=== PATIENT | female | born 1990 | race Caucasian/White ===

== ENCOUNTER 2018-08-04 17:35 | Emergency (ER) | payer OTHER ==
[2018-08-04] MEDS ORDERED: ONDANSETRON *ODT* 4 MG TABLET SL ONE (17:45)
--- NOTE | 2018-08-04 17:47 | PDOC ---
Rapid Medical Evaluation Chief Complaint: Respiratory Time Seen by Provider: 08/04/18 17:43 Medical Evaluation: 08/04/18 17:43 27 year old with epigastric pain x 2 days with vomiting and diarrhea and cough x 3 weeks. denies fever/ chills PE: patient alert ox3. breath sounds clear A: epigastric pain P: zofran po ua urine patient to the ER for further management of care 08/04/18 17:46 Discharge Disposition - Diagnosis Epigastric abdominal pain - Referrals - Patient Instructions - Post Discharge Activity
[2018-08-04 17:48] VITALS: BP 133/79; PULSE 61; TEMP 98.2; BMI 24.7
[2018-08-04] MEDS ORDERED: ONDANSETRON *ODT* 4 MG TABLET ONE ×2 (18:25→18:26)
[2018-08-04 18:43] LABS: HCG,QUALITATIVE URINE Negative
[2018-08-04] MEDS ORDERED: FAMOTIDINE 20 MG/50 ML IVPB 20 MG/50 ML MG IVPB ONE ×2 (18:45→18:56)
[2018-08-04 18:46] LABS: URINE APPEARANCE CLEAR; URINE BILIRUBIN NEGATIVE (<2.0 mg/dL); URINE COLOR STRAW; URINE GLUCOSE (UA) NEGATIVE (NEGATIVE); URINE KETONE NEGATIVE (NEGATIVE); URINE LEUK ESTERASE NEGATIVE (NEGATIVE); URINE NITRITE NEGATIVE (NEGATIVE); URINE PROTEIN NEGATIVE (NEGATIVE); URINE UROBILINOGEN NEGATIVE mg/dL (0.2-1.0)
--- NOTE | 2018-08-04 18:59 | PDOC ---
History of Present Illness - General History Source: Patient Exam Limitations: Clinical Condition - History of Present Illness Initial Comments: 08/04/18 18:53 Patient with no significant past medication present with complaint of 3 weeks history of intermittent nonproductive cough and nasal congestion. Patient also reported 2 day history of epigastric pain with nausea and vomiting. Denies fever or chills. she also reports loose stool for same. Patient report vomiting 5 times today. Denies blood in vomit. Denies blood in stool. Patient denies recent travel. Timing/Duration: other (2 days) <Rafita Burger - Last Filed: 08/04/18 19:51> <Jerman Marrero - Last Filed: 08/04/18 21:08> - General Chief Complaint: Nausea/Vomiting Stated Complaint: PAIN Time Seen by Provider: 08/04/18 17:43 Past History - Past Medical History COPD: No Other medical history: LMP 07/28/18 - Suicide/Smoking/Psychosocial Hx Smoking History: Never smoked Hx Alcohol Use: No Drug/Substance Use Hx: No <Rafita Burger - Last Filed: 08/04/18 19:51> <Jerman Marrero - Last Filed: 08/04/18 21:08> - Past Medical History Allergies/Adverse Reactions: Allergies Allergy/AdvReac Type Severity Reaction Status Date / Time Fish Containing Products Allergy Verified 08/04/18 18:01 SEAFOOD Allergy Uncoded 08/04/18 17:45 Home Medications: Ambulatory Orders Benzonatate [Tessalon Pearls -] 100 mg PO TID PRN #21 capsule 08/04/18 Cefdinir 300 mg PO BID 5 Days #10 capsule 08/04/18 Famotidine [Pepcid] 20 mg PO BID 5 Days #10 tablet 08/04/18 Methylprednisolone [Medrol Dose Jude] 4 mg PO ASDIR #21 tablet 08/04/18 Ondansetron [Zofran Odt -] 4 mg SL TID PRN #12 od.tablet 08/04/18 Review of Systems - Review of Systems Able to Perform ROS?: Yes Is the patient limited Kazakh proficient: No Constitutional: No: Chills, Fever, Weakness HEENTM: Yes: See HPI, Nose Congestion. No: Eye Pain, Blurred Vision, Tearing, Recent change in vision, Double Vision, Cataracts, Ear Pain, Ocular Prothesis, Ear Discharge, Nose Pain, Tinnitus, Nose Bleeding, Hearing Loss, Throat Pain, Throat Swelling, Mouth Pain, Dental Problems, Difficulty Swallowing, Mouth Swelling, Other Respiratory: Yes: Symptoms reported, See HPI, Cough. No: Orthopnea, Shortness of Breath, SOB with Exertion, SOB at Rest, Stridor, Wheezing, Productive cough, Hemoptysis Cardiac (ROS): No: Symptoms Reported, See HPI, Chest Pain, Edema, Irregular Heart Rate, Lightheadedness, Palpitations, Syncope, Chest Tightness, Other ABD/GI: Yes: See HPI, Diarrhea, Nausea, Vomiting, Abdominal cramping (epigastric ). No: Abdominal Distended, Abd. Pain w/ defecation, Blood Streaked Bowels, Constipated, Difficulty Swallowing, Poor Appetite, Poor Fluid Intake, Rectal Bleeding, Indigestion, Tarry Stools : No: Burning, Dysuria, Frequency, Flank Pain, Hematuria, Incontinence, Pain, Urgency Musculoskeletal: No: Back Pain All Other Systems: Reviewed and Negative <Rafita Burger - Last Filed: 08/04/18 19:51> *Physical Exam - Vital Signs Last Vital Signs Temp Pulse Resp BP Pulse Ox 98.2 F 61 16 133/79 99 08/04/18 17:46 08/04/18 17:46 08/04/18 17:46 08/04/18 17:46 08/04/18 17:46 - Physical Exam Comments: 08/04/18 18:56 GENERAL: Well developed, well nourished. Awake and alert. No acute distress. HEENT: Normocephalic, atraumatic. PERRLA, EOMI. No conjunctival pallor. Sclera are non- icteric. Moist mucous membranes. Oropharynx is clear. NECK: Supple. Full ROM. No JVD. Carotid pulses 2+ and symmetric, without bruits. No thyromegaly. No lymphadenopathy. CARDIOVASCULAR: Regular rate and rhythm. No murmurs, rubs, or gallops. Distal pulses are 2+ and symmetric. PULMONARY: No evidence of respiratory distress. Lungs clear to auscultation bilaterally. No wheezing, rales or rhonchi. ABDOMINAL:moderate epigastric and LLQ tenderness Soft. Non-distended. No rebound or guarding. No organomegaly. Normoactive bowel sounds. SKIN: Warm and dry. Normal capillary refill. No rashes. No jaundice. NEUROLOGICAL: Alert, awake, appropriate. Gait is normal without ataxia. PSYCHIATRIC: Cooperative. Good eye contact. Appropriate mood and affect. General Appearance: Yes: Nourished, Appropriately Dressed. No: Apparent Distress <Rafita Burger - Last Filed: 08/04/18 19:51> - Vital Signs Last Vital Signs Temp Pulse Resp BP Pulse Ox 98.2 F 61 16 133/79 99 08/04/18 17:46 08/04/18 17:46 08/04/18 17:46 08/04/18 17:46 08/04/18 17:46 <Jerman Marrero - Last Filed: 08/04/18 21:08> ED Treatment Course - LABORATORY CBC & Chemistry Diagram: 08/04/18 18:45 08/04/18 18:41 - ADDITIONAL ORDERS Additional order review: Laboratory Results 08/04/18 06:30 Urine Color Straw Urine Appearance Clear Urine pH 6.0 Ur Specific [place] 1.015 Urine Protein Negative Urine Glucose (UA) Negative Urine Ketones Negative Urine Blood Negative Urine Nitrite Negative Urine Bilirubin Negative Urine Urobilinogen Negative Ur Leukocyte Esterase Negative Urine HCG, Qual Negative - RADIOLOGY Radiology Studies Ordered: Category Date Time Status ABDOMEN & PELVIS CT WITH CONTR [CT] Stat CT Scan 08/04/18 18:50 Ordered - Medications Given in the ED: ED Medications Discontinued Medications Generic Name Dose Route Start Last Admin Trade Name Freq PRN Reason Stop Dose Admin Ondansetron HCl 4 mg 08/04/18 17:45 08/04/18 18:26 Zofran Odt - SL 08/04/18 17:46 4 mg ONCE ONE Administration <JennyferRafita - Last Filed: 08/04/18 19:51> - LABORATORY CBC & Chemistry Diagram: 08/04/18 18:45 08/04/18 18:41 - ADDITIONAL ORDERS Additional order review: Laboratory Results 08/04/18 08/04/18 18:41 06:30 Sodium 138 Potassium 4.7 Chloride 102 Carbon Dioxide 29 Anion Gap 7 L BUN 18 Creatinine 0.8 Creat Clearance w eGFR > 60 Random Glucose 81 Calcium 9.8 Total Bilirubin 0.5 Direct Bilirubin 0.2 AST 21 ALT 24 Alkaline Phosphatase 58 Total Protein 8.5 H Albumin 4.1 Total Amylase 55 Lipase 231 Urine Color Straw Urine Appearance Clear Urine pH 6.0 Ur Specific [place] 1.015 Urine Protein Negative Urine Glucose (UA) Negative Urine Ketones Negative Urine Blood Negative Urine Nitrite Negative Urine Bilirubin Negative Urine Urobilinogen Negative Ur Leukocyte Esterase Negative Urine HCG, Qual Negative 08/04/18 18:45 RBC 5.00 MCV 76.6 L MCHC 33.9 RDW 16.5 H MPV 10.0 Neutrophils % 61.5 Lymphocytes % 20.7 Monocytes % 5.7 Eosinophils % 11.5 H Basophils % 0.6 - Medications Given in the ED: ED Medications Discontinued Medications Generic Name Dose Route Start Last Admin Trade Name Freq PRN Reason Stop Dose Admin Famotidine/Sodium Chloride 20 mg in 50 mls @ 100 mls/hr 08/04/18 18:45 19:03 Pepcid 20 Mg Premixed Ivpb - IVPB 08/04/18 19:14 100 mls/hr ONCE ONE Administration Ondansetron HCl 4 mg 08/04/18 17:45 08/04/18 18:26 Zofran Odt - SL 08/04/18 17:46 4 mg ONCE ONE Administration <Jerman Marrero - Last Filed: 08/04/18 21:08> Medical Decision Making - Medical Decision Making 08/04/18 18:57 Patient with no significant past medication present with complaint of 2 weeks history of intermittent nonproductive cough and nasal congestion. Patient also with complaint of 2 days history of epigastric pain with nausea and vomiting. Exam significant for moderate tenderness so epigastric area with mild tenderness to left lower quadrant. symptoms gastroenteritis vs cholecystis vs colitis CBC, CMP and hepatic panel of labs ordered. Urine hCG negative. CAT scan of abdominal with IV contrast ordered. Treat based on imaging and lab results 08/04/18 18:59 08/04/18 19:51 cbc and chemistry with no abnormality. abd CT still pending. likely gastroenteritis with URI and will be treated outpatient if neg abd CT scan <Rafita Burger - Last Filed: 08/04/18 19:51> *DC/Admit/Observation/Transfer - Discharge Dispostion Decision to Admit order: No <Rafita Burger - Last Filed: 08/04/18 19:51> <Jerman Marrero - Last Filed: 08/04/18 21:08> Diagnosis at time of Disposition: Epigastric abdominal pain, Cough, Gastroenteritis URI (upper respiratory infection) Qualifiers: URI type: unspecified URI Qualified Code(s): J06.9 - Acute upper respiratory infection, unspecified - Discharge Dispostion Disposition: HOME Condition at time of disposition: Stable - Prescriptions Prescriptions: Benzonatate [Tessalon Pearls -] 100 mg PO TID PRN #21 capsule PRN Reason: Cough Cefdinir 300 mg PO BID 5 Days #10 capsule Famotidine [Pepcid] 20 mg PO BID 5 Days #10 tablet Methylprednisolone [Medrol Dose Jude] 4 mg PO ASDIR #21 tablet Ondansetron [Zofran Odt -] 4 mg SL TID PRN #12 od.tablet PRN Reason: nausea - Referrals Referrals: Patrick Barros DO [Staff Physician] - - Patient Instructions Printed Discharge Instructions: DI for Vomiting -- Adult Additional Instructions: take medications as prescribed. increase fluid intake. follow-up with referred GI doctor if symptoms persists for more than 4 days
[2018-08-04 19:19] LABS: BASO % 0.6 % (0-2.0); EOS % 11.5 % (0-4.5); HEMATOCRIT 38.3 % (32.4-45.2); LYMPH % 20.7 % (8-40); MCHC 33.9 g/dl (32.0-36.0); MEAN CELL VOLUME 76.6 fl (80-96); MONO % 5.7 % (3.8-10.2); NEUT % 61.5 % (42.8-82.8); PLATELET COUNT 294 K/MM3 (134-434); RDW 16.5 % (11.6-15.6); WHITE BLOOD COUNT 9.9 K/mm3 (4.0-10.0)
[2018-08-04 19:48] LABS: ALBUMIN 4.1 g/dl (3.4-5.0); ALK PHOS 58 U/L (45-117); AMYLASE 55 U/L (25-115); ANION GAP 7 MMOL/L (8-16); BILIRUBIN,DIRECT 0.2 mg/dL (0.0-0.2); BILIRUBIN,TOTAL 0.5 mg/dL (0.2-1); BLOOD UREA NITROGEN 18 mg/dL (7-18); CALCIUM 9.8 mg/dL (8.5-10.1); CHLORIDE 102 mmol/L (98-107); CO2 29 mmol/L (21-32); CREATININE 0.8 mg/dL (0.55-1.3); GLUCOSE,RANDOM 81 mg/dL (74-106); LIPASE 231 U/L (73-393); POTASSIUM 4.7 mmol/L (3.5-5.1); SGOT/AST 21 U/L (15-37); SGPT/ALT 24 U/L (13-61); SODIUM 138 mmol/L (136-145); TOT PROT 8.5 g/dl (6.4-8.2)
== END 2018-08-04 21:14 | disposition home or self-care (01) ==
LOC: JER 17:35 → JERFT 17:35
PROC: 3E033GC Introduction of Other Therapeutic Substance into Peripheral Vein, Percutaneous Approach (ICD-10-PCS; principal; 2018-08-04)
DX: K52.9 Noninfective gastroenteritis and colitis, unspecified (principal); J06.9 Acute upper respiratory infection, unspecified
CPT/HCPCS: 36415; 74177-TC; 80053; 80076; 81003; 82150; 83690; 84703; 85025; 96365; 99281-25; Q0162

== ENCOUNTER 2018-12-09 23:39 | Emergency (ER) | payer OTHER ==
[2018-12-09] MEDS ORDERED: FAMOTIDINE 20 MG/50 ML IVPB 20 MG/50 ML MG IVPB ONE ×2 (23:50→23:58)
[2018-12-09] MEDS ORDERED: ONDANSETRON 4 MG/2 ML VIAL IVPUSH ONE (23:50)
[2018-12-09] MEDS ORDERED: ACETAMINOPHEN 1000 MG/100 ML VIAL (NON FORMULARY) IVPB ONE (23:50)
--- NOTE | 2018-12-09 23:53 | PDOC ---
History of Present Illness - General Chief Complaint: Vomiting/Diarrhea Stated Complaint: VOMITING,DIARRHEA SINCE 3PM AFTER EATING CHEESE AN Time Seen by Provider: 12/09/18 23:41 History Source: Patient Exam Limitations: No Limitations - History of Present Illness Initial Comments: 12/09/18 23:55 HPI 28 YOF with no medical history presenting with acute onset of generalized AP, n/ v/d since this afternoon after eating frozen cheese and toast. No other sick contacts. Since then, diffuse abdominal cramping, worse with food intake. Now associated with multiple episodes of yellow, NBNB emesis and watery diarrhea. She also endorses 3 days of URI sx including cough and congestion, which is not bothersome. Denies fever, chills, chest pain, SOB, palpitation, dizziness, weakness, bladder problems, or urinary sx, leg swelling, No sick contacts or travel. On control, denies Allergies: NKA Past Medical History: none Social history: Lives with family. No smoking. No alcohol. No illicit drugs. Surgical history: none Review of systems Constitutional: no fevers or chills. No sweats or weakness HEENT: no headache or dizziness.. +congestion CVS: no cp or syncope. Resp: no sob. +cough Gastrointestinal: +abdominal pain, nausea, vomiting, diarrhea. Genitourinary: no urinary sx, hematuria. MUSCULOSKELETAL: No joint pain and swelling. No neck or back pain. SKIN: no redness or skin changes, no discharge, no rash. No wounds. NEUROLOGIC: No headache, dizziness, LOC or altered mental status. Allergic/Immunologic: no allergies All other systems reviewed and negative, or as documented in HPI. Physical exam: General: Well appearing, awake and alert, NAD. HEENT: NCAT, PERRL, EOMI, clear conjunctiva, anicteric, dry mucus membranes, clear oropharynx, no oral lesions.. Neck: neck supple, FROM Resp: CTAB, normal and even respirations, no respiratory distress CVS: +tachycardic, no murmurs, 2+ peripheral pulses throughout, no peripheral edema Abdomen: soft, nondistended, but diffuse abdominal tenderness; no rebound or guarding. No CVAT. Back: nontender, normal inspection and ROM MSK: no edema, PLATA x4, ROM intact. No clubbing or cyanosis. normal bulk and tone. Neuro: alert, no focal neuro deficits. Skin: warm and well perfused, cap refill <2 sec, normal color Past History - Past Medical History Allergies/Adverse Reactions: Allergies Allergy/AdvReac Type Severity Reaction Status Date / Time Fish Containing Products Allergy Verified 12/10/18 00:47 SEAFOOD Allergy Uncoded 08/04/18 17:45 Home Medications: Ambulatory Orders Ondansetron [Zofran Odt -] 4 mg SL TID PRN #9 od.tablet 12/10/18 COPD: No - Suicide/Smoking/Psychosocial Hx Smoking History: Never smoked Hx Alcohol Use: No Drug/Substance Use Hx: No ED Treatment Course - LABORATORY CBC & Chemistry Diagram: 12/09/18 23:55 12/09/18 23:55 Medical Decision Making - Medical Decision Making 12/09/18 23:55 See HPI for details Vital signs reviewed, no fever, +tachycardic. DDx abdominal pain: Renal colic, biliary colic, metabolic/electrolyte derangements. GERD, PUD, esophageal spasm, pancreatitis, hepatitis, colitis, gastroenteritis, Prior notes reviewed, including admissions, discharges and consultations. laboratory results and imaging reviewed, basic labs and lytes wnl, notable for normal LFTs/lipase. UA_neg preg test ED course - given IVF, zofran, pepcid, tylenol and reassess, wil PO and pain improved. most likely food poisoning, gastroenteritis 2/2 suspicious food intake. doubt intra abdominal pathology, no imaging indicated with reassuring findings, labs and improvement clinically. supportive care and expectant management. Dispo: Pt informed of my clinical impression, treatment recommendations and disposition plan. All questions answered to patient's satisfaction and expressed understanding and comfort with this. Reasons for returning to the ED sooner discussed with the patient otherwise, follow up with primary care physician. At the time of discharge, the patient is alert, clinically improved, tolerating po and verbalizes understanding of instructions. Patient does not suffer from an acute life-threatening medical condition at this time she is safe for outpatient follow-up. 12/10/18 01:10 *DC/Admit/Observation/Transfer Diagnosis at time of Disposition: Nausea vomiting and diarrhea - Discharge Dispostion Disposition: HOME Condition at time of disposition: Stable Decision to Admit order: No - Prescriptions Prescriptions: Ondansetron [Zofran Odt -] 4 mg SL TID PRN #9 od.tablet PRN Reason: Nausea - Referrals Referrals: [facility] [place] [facility] [Provider Group] [facility] [Provider Group] - Patient Instructions Printed Discharge Instructions: How to Avoid Food Poisoning, DI for Food Poisoning, DI for Diarrhea and Traveler's Diarrhea -- Adult, DI for Vomiting -- Adult, Gastroenteritis Diet Additional Instructions: 1) Please follow-up with your primary care doctor in the next 1-2 days. Please call tomorrow for for any urgent issues. 2) You were given a copy of the tests performed today. Please bring the results with you and review them with your primary care doctor. Your laboratory / imaging results were normal, 3) If you have any worsening of symptoms or any other concerns please return to the ED immediately. Return if worsening symptoms including fevers, headache, vomiting, visual or hearing disturbances, abdominal pain, chest pain, shortness of breath, syncope, dehydration, inability to take things by mouth/vomiting, altered mental status, or worsening concerning symptoms. 4) Please continue taking your home medications as directed. your medications on discharge include tylenol and or motrin for your pain/fevers . side effects may include upset stomach, abdominal pain, vomiting, or diarrhea. do not drink alcohol with your medications. you may take zofran every 8 hours as needed for the nausea/vomiting Stay well hydrated and rest adequately. an appointment. If you cannot follow-up with your primary care doctor please return to the ED - Post Discharge Activity Forms/Work/School Notes: Back to Work
[2018-12-09] MEDS ORDERED: ACETAMINOPHEN INJECTION 100 ML IVPB ONE (23:57)
[2018-12-09] MEDS ORDERED: ONDANSETRON 4 MG/2 ML VIAL ONE (23:58)
[2018-12-10] MEDS ORDERED: SODIUM CHLORIDE 0.9% 500 ML INFUS.BAG IV ONE (00:06)
[2018-12-10 00:53] VITALS: BMI 27.8
[2018-12-10 01:05] LABS: BASO % 0.1 % (0-2.0); EOS % 3.6 % (0-4.5); HEMATOCRIT 40.5 % (32.4-45.2); HEMOGLOBIN 13.9 GM/dL (10.7-15.3); MCH 28.5 pg (25.7-33.7); MCHC 34.3 g/dl (32.0-36.0); MEAN CELL VOLUME 83.1 fl (80-96); MEAN PLT VOLUME 10.3 fl (7.5-11.1); NEUT % 88.3 % (42.8-82.8); PLATELET COUNT 249 K/MM3 (134-434); RBC 4.87 M/mm3 (3.60-5.2); RDW 14.4 % (11.6-15.6); WHITE BLOOD COUNT 9.1 K/mm3 (4.0-10.0)
[2018-12-10 01:27] LABS: ALBUMIN 3.8 g/dl (3.4-5.0); ALK PHOS 52 U/L (45-117); ANION GAP 7 MMOL/L (8-16); BILIRUBIN,TOTAL 0.5 mg/dL (0.2-1); BLOOD UREA NITROGEN 14 mg/dL (7-18); CALCIUM 8.5 mg/dL (8.5-10.1); CHLORIDE 109 mmol/L (98-107); CO2 22 mmol/L (21-32); CREATININE 0.8 mg/dL (0.55-1.3); GLUCOSE,RANDOM 87 mg/dL (74-106); LIPASE 166 U/L (73-393); POTASSIUM 4.1 mmol/L (3.5-5.1); SGOT/AST 18 U/L (15-37); SGPT/ALT 18 U/L (13-61); SODIUM 137 mmol/L (136-145); TOT PROT 8.2 g/dl (6.4-8.2)
[2018-12-10 01:42] VITALS: BP 97/53; PULSE 75; TEMP 98.3
== END 2018-12-10 01:42 | disposition home or self-care (01) ==
LOC: FER 23:39
PROC: 3E0337Z Introduction of Electrolytic and Water Balance Substance into Peripheral Vein, Percutaneous Approach (ICD-10-PCS; principal; 2018-12-09)
PROC: 3E033NZ Introduction of Analgesics, Hypnotics, Sedatives into Peripheral Vein, Percutaneous Approach (ICD-10-PCS; 2018-12-09)
PROC: 3E033GC Introduction of Other Therapeutic Substance into Peripheral Vein, Percutaneous Approach (ICD-10-PCS; 2018-12-09)
DX: R11.2 Nausea with vomiting, unspecified (principal); R19.7 Diarrhea, unspecified
CPT/HCPCS: 36415; 80053; 83690; 84703; 85025; 96365; 96368; 96375; 99281-25; J0131

== ENCOUNTER 2019-10-10 16:05 | Emergency (ER) | payer OTHER ==
[2019-10-10 16:19] VITALS: BP 145/90; PULSE 80; TEMP 98.8; BMI 25.8
--- NOTE | 2019-10-10 17:52 | PDOC ---
Documentation entered by Joanne Antoine SCRIBE, acting as scribe for Ousmane Canela MD. Ousmane Canela MD: This documentation has been prepared by the Arash rivera Xhesika, SCRIBE, under my direction and personally reviewed by me in its entirety. I confirm that the documentation accurately reflects all work, treatment, procedures, and medical decision making performed by me. History of Present Illness - General Chief Complaint: Cold Symptoms Stated Complaint: COLD SYMPTOMS Time Seen by Provider: 10/10/19 16:09 History Source: Patient Exam Limitations: No Limitations - History of Present Illness Initial Comments: 10/10/19 17:00 The patient is a 29 year old female with a significant PMH of asthma (last attack was years ago) who presents to the emergency department for SOB, headache , chills, congestion, body aches, and productive cough with yellow phlegm since last night. Pt states she had a control implant in her L arm for 8 months and had it removed 09/22/2019. Pt states her LMP was 2 months ago. Pt report being around sick contacts at work. Pt denies any recent travels. The patient denies chest pain, and dizziness. Denies fever, nausea, vomiting, diarrhea and constipation. Denies dysuria, frequency, urgency and hematuria. Allergies: NKDA Past History - Past Medical History Allergies/Adverse Reactions: Allergies Allergy/AdvReac Type Severity Reaction Status Date / Time Fish Containing Products Allergy Verified 12/10/18 00:47 SEAFOOD Allergy Uncoded 08/04/18 17:45 Home Medications: Ambulatory Orders Naproxen [Naprosyn -] 375 mg PO BID PRN #14 tablet 10/10/19 Oseltamivir Phosphate [Tamiflu] 75 mg PO BID 5 Days #10 capsule 10/10/19 COPD: No - Psycho Social/Smoking Cessation Hx Smoking History: Never smoked Have you smoked in the past 12 months: No Hx Alcohol Use: Yes (OCCASIONAL) Drug/Substance Use Hx: No Review of Systems - Review of Systems Able to Perform ROS?: Yes Comments:: 10/10/19 17:00 GENERAL/CONSTITUTIONAL: No fever. No weakness. +chills. +body aches HEAD, EYES, EARS, NOSE AND THROAT: No change in vision. No ear pain or discharge. No sore throat. +congestion CARDIOVASCULAR: No chest pain. +shortness of breath. RESPIRATORY: + productive cough. No wheezing, or hemoptysis. GASTROINTESTINAL: No nausea, vomiting, diarrhea or constipation. GENITOURINARY: No dysuria, frequency, or change in urination. MUSCULOSKELETAL: No joint or muscle swelling or pain. No neck or back pain. SKIN: No rash NEUROLOGIC: + headache. No vertigo, loss of consciousness, or change in strength /sensation. ENDOCRINE: No increased thirst. No abnormal weight change. HEMATOLOGIC/LYMPHATIC: No anemia, easy bleeding, or history of blood clots. ALLERGIC/IMMUNOLOGIC: No hives or skin allergy. *Physical Exam - Vital Signs Last Vital Signs Temp Pulse Resp BP Pulse Ox 98.8 F 80 15 145/90 99 10/10/19 16:06 10/10/19 16:06 10/10/19 16:06 10/10/19 16:06 10/10/19 16:06 - Physical Exam 10/10/19 17:43 GENERAL: The patient is awake, alert, and fully oriented, in no acute distress. She is coughing, nonproductive. HEAD: Normal with no signs of trauma. EYES: Pupils equal, round and reactive to light, extraocular movements intact, sclera anicteric, conjunctiva clear. ENT: Ears normal, nares with redness of the nasal membranes and clear discharge , oropharynx with mild erythema but without exudates. Moist mucous membranes. NECK: Normal range of motion, supple without lymphadenopathy, JVD, or masses. LUNGS: Breath sounds equal, clear to auscultation bilaterally. No wheezes, and no crackles. Positive frequent coughing. Normal air entry bilaterally. HEART: Regular rate and rhythm, normal S1 and S2 without murmur, rub or gallop. ABDOMEN: Soft, nontender, normoactive bowel sounds. No guarding, no rebound. No masses. EXTREMITIES: Normal range of motion, no edema. No clubbing or cyanosis. No cords, erythema, or tenderness. NEUROLOGICAL: Cranial nerves II through XII grossly intact. Normal speech, normal gait. PSYCH: Normal mood, normal affect. SKIN: Warm, Dry, normal turgor, no rashes or lesions noted. ED Treatment Course - RADIOLOGY Radiology Studies Ordered: Category Date Time Status CHEST PA & LAT [RAD] Stat Radiology 10/10/19 17:19 Taken Medical Decision Making - Medical Decision Making 10/10/19 17:45 29-year-old female, prior remote history of asthma, presents with 24 hours of flulike symptoms. She has body aches, mild headache, nasal congestion with discharge, sore throat, and cough with chest discomfort. She also complains of chills. On examination, she has inflamed nasal membranes with clear discharge, mild erythema of the throat, supple neck, no adenopathy, and clear lungs without any signs of acute asthma. She does have frequent coughing, but normal air entry and again, no wheezes. Abdomen is benign. Extremities are normal. Chest x-ray PA and lateral was performed and reviewed by me. There is no focal infiltrate. There is mild tenting of the anterior portion of the right diaphragm without signs of acute infection. There is no consolidation. Final radiology reading is pending at the time of disposition. Radiology follow-up procedure activated. Impression: Influenza-like illness x24 hours with cough and congestion. Chest x -ray is clear without signs of pneumonia. Patient will be treated with Tamiflu , Naprosyn, rest, fluids, and medical follow-up. Discharge - Discharge Information Problems reviewed: Yes Clinical Impression/Diagnosis: Viral upper respiratory infection Condition: Stable Disposition: HOME - Admission No - Additional Discharge Information Prescriptions: Naproxen [Naprosyn -] 375 mg PO BID PRN #14 tablet PRN Reason: pain or fever Oseltamivir Phosphate [Tamiflu] 75 mg PO BID 5 Days #10 capsule - Follow up/Referral Referrals: Ousmane Arzate MD [Staff Physician] - 2 Days - Patient Discharge Instructions Patient Printed Discharge Instructions: DI for Viral Upper Respiratory Infection -- Adult Additional Instructions: Today you were evaluated for cough and nasal congestion. The chest x-ray is clear and shows no pneumonia. Your diagnosis is flu. Take Tamiflu 75 mg twice daily. Take Naprosyn 375 mg twice daily for pain or fever as needed. Drink plenty of fluids. Get plenty of rest. Stay home from work until your symptoms improve. [facility] with [facility] as [facility]. You will get a call for your appointment. Return to the emergency department for any severe or progressive symptoms. - Post Discharge Activity Work/Back to School Note: Back to Work
== END 2019-10-10 18:05 | disposition home or self-care (01) ==
LOC: FER 16:05
DX: J06.9 Acute upper respiratory infection, unspecified (principal); B97.89 Other viral agents as the cause of diseases classified elsewhere; Z91.013 Allergy to seafood; J45.909 Unspecified asthma, uncomplicated
CPT/HCPCS: 71046-TC-FY; 81025; 99281-25

== ENCOUNTER 2020-11-23 18:06 | Emergency (ER) | payer OTHER ==
[2020-11-23 18:28] VITALS: BP 116/79; PULSE 80; TEMP 98.9; BMI 29.2
[2020-11-23 18:45] LABS: HEMATOCRIT 40.7 % (32.4-45.2); HEMOGLOBIN 13.6 GM/dl (10.7-15.3); MCH 28.8 pg (25.7-33.7); MCHC 33.5 g/dl (32.0-36.0); MEAN PLT VOLUME 9.5 fl (7.5-11.1); PLATELET COUNT 248 K/MM3 (134-434); RBC 4.73 M/mm3 (3.60-5.2); RDW 12.9 % (11.6-15.6); WHITE BLOOD COUNT 13.1 K/mm3 (4.0-10.8)
[2020-11-23] MEDS ORDERED: PANTOPRAZOLE SODIUM 40 MG in SODIUM CHLORIDE 100 ML IVPB ONE (18:48)
[2020-11-23] MEDS ORDERED: ONDANSETRON 4 MG/2 ML VIAL IVPB ONE (18:48)
[2020-11-23] MEDS ORDERED: SODIUM CHLORIDE 1,000 ML IV STA (18:49)
[2020-11-23] MEDS ORDERED: PANTOPRAZOLE SODIUM 40 MG VIAL ONE (18:55)
[2020-11-23] MEDS ORDERED: ONDANSETRON 4 MG/2 ML VIAL ONE (18:55)
[2020-11-23 19:04] LABS: ALBUMIN 3.9 g/dl (3.4-5.0); BILIRUBIN,TOTAL 0.7 mg/dl (0.2-1); CREATININE 0.7 mg/dl (0.55-1.3); POTASSIUM 4.3 mmol/L (3.5-5.1); TOT PROT 7.8 g/dl (6.4-8.2)
[2020-11-23 20:30] LABS: PLATELET ESTIMATE ADEQUATE
== END 2020-11-23 21:17 | disposition home or self-care (01) ==
LOC: FER 18:06
PROC: 3E0337Z Introduction of Electrolytic and Water Balance Substance into Peripheral Vein, Percutaneous Approach (ICD-10-PCS; principal; 2020-11-23)
PROC: 3E033GC Introduction of Other Therapeutic Substance into Peripheral Vein, Percutaneous Approach (ICD-10-PCS; principal; 2020-11-23)
DX: R10.13 Epigastric pain (principal)
CPT/HCPCS: 36415; 74019-TC-FY; 80053; 81003; 83690; 84703; 85025; 99284-25

== ENCOUNTER 2020-11-25 15:06 | Emergency (ER) | payer OTHER ==
[2020-11-25 15:11] VITALS: BP 128/93; PULSE 96; TEMP 98.6; BMI 25.4
[2020-11-25] MEDS ORDERED: ACETAMINOPHEN 325 MG TABLET (FP) PO ONE (15:28)
[2020-11-25] MEDS ORDERED: SUCRALFATE 1 GM TABLET (FP) PO ONE (15:28)
[2020-11-25] MEDS ORDERED: FAMOTIDINE 20 MG TABLET PO ONE (15:28)
[2020-11-25] MEDS ORDERED: ONDANSETRON 4 MG TABLET PO ONE (15:29)
[2020-11-25] MEDS ORDERED: ACETAMINOPHEN 325 MG TABLET (FP) ONE (16:01)
[2020-11-25] MEDS ORDERED: ONDANSETRON *ODT* 4 MG TABLET ONE (16:01)
[2020-11-25] MEDS ORDERED: FAMOTIDINE 20 MG TABLET ONE (16:01)
[2020-11-25] MEDS ORDERED: SUCRALFATE 1 GM TABLET (FP) ONE (16:02)
== END 2020-11-25 17:30 | disposition home or self-care (01) ==
LOC: JER 15:06
DX: R10.13 Epigastric pain (principal)
CPT/HCPCS: 76705-TC; 99284-25

== ENCOUNTER 2021-03-31 00:13 | Emergency (ER) | payer OTHER ==
[2021-03-31 01:01] VITALS: BP 131/80; PULSE 84; TEMP 98.2; BMI 31.5
[2021-03-31] MEDS ORDERED: ACETAMINOPHEN 325 MG TABLET (FP) PO ONE (01:26)
[2021-03-31] MEDS ORDERED: ALBUTEROL SO4 2.5/IPRATROPIUM 0.5 INH SOL 3 ML VIAL.NEB. NEB ONE (01:38)
[2021-03-31] MEDS ORDERED: ACETAMINOPHEN 325 MG TABLET (FP) ONE (01:38)
[2021-03-31] MEDS: ALBUTEROL SO4 2.5/IPRATROPIUM 0.5 INH SOL 3 ML VIAL.NEB. NEB SCH (02:06)
== END 2021-03-31 04:09 | disposition home or self-care (01) ==
LOC: JER 00:13
PROC: 3E0F7GC Introduction of Other Therapeutic Substance into Respiratory Tract, Via Natural or Artificial Opening (ICD-10-PCS; principal; 2021-03-31)
DX: M79.10 Myalgia, unspecified site (principal)
CPT/HCPCS: 71046-TC-FY; 87804; 99284-25; C9803; U0003; U0005

== ENCOUNTER 2021-12-08 22:02 | Emergency (ER) | payer OTHER ==
[~2021-12-08 22:02] MED LIST: LIDOCAINE PATCH REMOVAL MC SCH
[2021-12-08 22:08] VITALS: BP 120/78; PULSE 88; TEMP 97; BMI 30.7
[2021-12-08] MEDS ORDERED: LIDOCAINE 5% TOPICAL PATCH TP ONE (23:59)
[2021-12-09] MEDS ORDERED: ONDANSETRON 4 MG TABLET PO ONE ×2 (00:03)
[2021-12-09] MEDS ORDERED: LIDOCAINE 5% TOPICAL PATCH ONE (00:03)
[2021-12-09] MEDS ORDERED: KETOROLAC TROMETHAMINE 30 MG/1 ML VIAL IM ONE (00:29)
[2021-12-09] MEDS ORDERED: diazePAM 2 MG TABLET PO ONE (00:30)
[2021-12-09] MEDS ORDERED: diazePAM 2 MG TABLET ONE (00:32)
[2021-12-09] MEDS ORDERED: KETOROLAC TROMETHAMINE 30 MG/1 ML VIAL ONE (00:32)
== END 2021-12-09 01:06 | disposition home or self-care (01) ==
LOC: JERFT 22:02 → JER 22:02
PROC: 3E023GC Introduction of Other Therapeutic Substance into Muscle, Percutaneous Approach (ICD-10-PCS; principal; 2021-12-08)
DX: M62.830 Muscle spasm of back (principal)
CPT/HCPCS: 84703; 99284-25

== ENCOUNTER 2023-11-25 23:32 | Emergency (ER) | payer OTHER ==
[2023-11-25 23:42] VITALS: BP 129/86; PULSE 78; RESP 16; TEMP 98.7; BMI 30.4
[2023-11-25] MEDS ORDERED: KETOROLAC TROMETHAMINE 60 MG/2 ML VIAL ONE (23:50)
[2023-11-25] MEDS: KETOROLAC TROMETHAMINE 60 MG/2 ML VIAL IM ONE (23:53)
== END 2023-11-26 00:13 | disposition home or self-care (01) ==
LOC: FER 23:32
PROC: 3E0233Z Introduction of Anti-inflammatory into Muscle, Percutaneous Approach (ICD-10-PCS; principal; 2023-11-25)
DX: R07.89 Other chest pain (principal); R00.2 Palpitations
CPT/HCPCS: 81025; 99284-25

== ENCOUNTER 2023-11-28 19:35 | Emergency (ER) | payer OTHER ==
[2023-11-28 19:41] VITALS: BP 122/80; PULSE 90; RESP 19; TEMP 98.3; BMI 30.7
[2023-11-28] MEDS ORDERED: ACETAMINOPHEN INJECTION 100 ML IVPB ONE (20:32)
[2023-11-28] MEDS ORDERED: FAMOTIDINE 20 MG/50 ML IVPB 20 MG/50 ML MG IVPB ONE (20:32)
[2023-11-28] MEDS ORDERED: ONDANSETRON 4 MG/2 ML VIAL ONE (20:32)
[2023-11-28 20:37] LABS: BASO % 0.4 % (0-2.0); HEMATOCRIT 34.9 % (32.4-45.2); HEMOGLOBIN 11.8 GM/dL (10.7-15.3); LYMPH % 15.2 % (8-40); MCH 27.8 pg (25.7-33.7); MCHC 33.9 g/dl (32.0-36.0); MEAN CELL VOLUME 82.1 fl (80-96); MONO % 5.3 % (3.8-10.2); NEUT % 73.1 % (42.8-82.8); PLATELET COUNT 249 10^3/uL (134-434); RBC 4.25 M/mm3 (3.60-5.2); RDW 13.7 % (11.6-15.6); WHITE BLOOD COUNT 8.1 K/mm3 (4.0-10.0)
[2023-11-28] MEDS: SODIUM CHLORIDE 0.9% 500 ML INFUS.BAG IV ONE (20:42)
[2023-11-28] MEDS: ACETAMINOPHEN 1000 MG/100 ML BAG IVPB ONE (20:42)
[2023-11-28] MEDS: ONDANSETRON 4 MG/2 ML VIAL IVPUSH ONE (20:43)
[2023-11-28 21:01] LABS: PH,URINE 5.5 (5.0-8.0); URINE APPEARANCE CLEAR; URINE BILIRUBIN NEGATIVE (NEGATIVE); URINE COLOR YELLOW; URINE GLUCOSE (UA) NEGATIVE (NEGATIVE); URINE KETONE NEGATIVE (NEGATIVE); URINE LEUK ESTERASE NEGATIVE (NEGATIVE); URINE NITRITE NEGATIVE (NEGATIVE); URINE PROTEIN NEGATIVE (NEGATIVE); URINE UROBILINOGEN 0.2 mg/dL (0.2-1.0)
[2023-11-28 21:06] LABS: POTASSIUM 4.3 mmol/L (3.5-5.1)
[2023-11-28 21:10] LABS: ALBUMIN 3.8 g/dl (3.4-5.0); BLOOD UREA NITROGEN 15.5 mg/dL (7-18)
[2023-11-28 21:12] LABS: CREATININE 0.7 mg/dL (0.55-1.3)
[2023-11-28 21:13] LABS: BILIRUBIN,TOTAL 0.3 mg/dL (0.2-1); TOT PROT 7.6 g/dl (6.4-8.2)
[2023-11-28] MEDS: FAMOTIDINE 20 MG/50 ML IVPB 20 MG/50 ML MG IVPB ONE (21:27)
[2023-11-28] MEDS ORDERED: METOCLOPRAMIDE HCL INJECTION 10 MG/2 ML VIAL ONE (21:29)
[2023-11-28] MEDS: METOCLOPRAMIDE HCL INJECTION 10 MG/2 ML VIAL IVPUSH ONE (21:38)
== END 2023-11-28 23:17 | disposition home or self-care (01) ==
LOC: JER 19:35
PROC: 3E033GC Introduction of Other Therapeutic Substance into Peripheral Vein, Percutaneous Approach (ICD-10-PCS; principal; 2023-11-28)
PROC: 3E033GC Introduction of Other Therapeutic Substance into Peripheral Vein, Percutaneous Approach (ICD-10-PCS; 2023-11-28)
PROC: 3E033GC Introduction of Other Therapeutic Substance into Peripheral Vein, Percutaneous Approach (ICD-10-PCS; 2023-11-28)
PROC: 3E033NZ Introduction of Analgesics, Hypnotics, Sedatives into Peripheral Vein, Percutaneous Approach (ICD-10-PCS; 2023-11-28)
DX: R10.13 Epigastric pain (principal); R11.2 Nausea with vomiting, unspecified; R42 Dizziness and giddiness; R51.9 Headache, unspecified; J34.89 Other specified disorders of nose and nasal sinuses; R09.81 Nasal congestion; Z20.822 Contact with and (suspected) exposure to COVID-19
CPT/HCPCS: 0241U-QW; 36415; 76705-TC; 80053; 81003; 83605; 83690; 84703; 85025; 87086; 93005; 93010; 99285-25; J0131

== ENCOUNTER 2024-05-16 18:40 | Emergency (ER) | payer OTHER ==
[2024-05-16 19:02] VITALS: BP 108/76; PULSE 88; RESP 20; TEMP 98.6; BMI 30.9
[2024-05-16 20:25] LABS: THROAT:GRP A STREP NOT DETECTED (NOTDETECTED)
[2024-05-16 21:02] LABS: HIV INTERPRETATION NEGATIVE (NEGATIVE)
== END 2024-05-16 21:19 | disposition home or self-care (01) ==
LOC: JER 18:40 → JERFT 18:40
DX: U07.1 COVID-19 (principal); J02.9 Acute pharyngitis, unspecified; R51.9 Headache, unspecified; R09.81 Nasal congestion; R05.9 Cough, unspecified; R11.0 Nausea
CPT/HCPCS: 0241U-QW; 36415; 86803; 87389; 87651; 99283-25